=== PATIENT | male | born 1970 | race Caucasian/White ===

== ENCOUNTER → 2018-04-18 | Outpatient (CLI) | payer BC ==
--- NOTE | 2018-04-19 11:21 | RADIOLOGY REPORT (SQ) ---
EXAM DESCRIPTION: MRI LT LOWER JOINT WITHOUT COMPLETED DATE/TIME: 04/18/2018 6:52 pm REASON FOR STUDY: LEFT KNEE MENISCUS DERANGEMENT M23.332 OTH MENISCUS DERANGEMENTS, OTHER MEDIAL ME NISCUS, LE COMPARISON: None. TECHNIQUE: Leftknee images acquired and stored on PACS. Multiplanar images include fat sensitive se quences as T1, water sensitive sequences as FST2 or STIR, cartilage sensitive sequences as FSPD, and gradient echo sequences. LIMITATIONS: None. FINDINGS: JOINT AND BURSAE: No effusion. BONE CORTEX AND MARROW: No alteration of signal to suggest marrow replacement. No worrisome bone lesi ons. No occult fracture. ACL: Intact. No degeneration or ganglion cyst. PCL: Intact. MCL: Intact. No periligamentous edema or fluid. LCL: Intact. No periligamentous edema or fluid. MEDIAL MENISCUS: Vertical radial tear of central meniscus. LATERAL MENISCUS: No tears. No abnormal signal. MEDIAL COMPARTMENT: Cartilage preserved. No bone bruises or reactive marrow edema. No osteophytes. LATERAL COMPARTMENT: Cartilage preserved. No bone bruises or reactive marrow edema. No osteophytes. PATELLA: No chondromalacia. No subchondral cysts. Medial and lateral retinacula intact. EXTENSOR MECHANISM: Intact. Quadriceps and patella tendons normal. SOFT TISSUES: Adjacent muscles and subcutaneous tissues normal. Normal flow void in popliteal artery and vein. OTHER: No other significant finding. IMPRESSION: Vertical radial tear of the medial meniscus. TECHNICAL DOCUMENTATION: JOB ID: [id number] [employer]- All Rights Reserved Reading location - IP/workstation name: [email or web address]
== END ==
LOC: RAD 17:48
PROVIDERS: ATTEND Orthopaedic Surgery Sports Medicine
DX: M23.332 Other meniscus derangements, other medial meniscus, left knee (principal)

== ENCOUNTER 2020-08-23 08:58 | Emergency (ER) | payer BC ==
[2020-08-23 09:13] VITALS: BP 138/70
--- NOTE | 2020-08-23 09:22 | ER Document Report ---
ED General - General Chief Complaint: Shoulder Pain Stated Complaint: RIGHT SHOULDER PAIN Time Seen by Provider: 08/23/20 09:21 Primary Care Provider: MANUEL SHANKS MD [ACTIVE STAFF] - Follow up in 3-5 days TRAVEL OUTSIDE OF THE [place] IN LAST 30 DAYS: No - HPI Notes: 50-year-old male with past medical history of diet-controlled diabetes to the emergency department with complaints of right shoulder pain that began several days ago. It is progressively gotten worse. He states it hurts a lot when he tries to move his arm above his head. He denies any injuries or heavy lifting. He states that 2 weeks ago he built a patio but really did not have any pain at that time. He did not fall. He states that he does have a history of a dislocated shoulder in high school on the side. He is never had another dislocation after that. He is right-hand dominant. - Related Data Allergies/Adverse Reactions: No Known Allergies Allergy (Unverified 08/23/20 09:29) Past Medical History - General Information source: Patient, Relative - Social History Smoking Status: Current Every Day Smoker Frequency of alcohol use: None Drug Abuse: None Family History: DM, Hypertension Review of Systems - Review of Systems Constitutional: denies: Chills, Fever EENT: No symptoms reported Cardiovascular: denies: Chest pain, Palpitations, Heart racing, Orthopnea, Dyspnea, Syncope, Dizziness, Lightheaded Respiratory: denies: Cough, Short of breath Gastrointestinal: denies: Abdominal pain, Diarrhea, Nausea, Vomiting Musculoskeletal: Joint pain - right shoulder pain Skin: No symptoms reported Neurological/Psychological: No symptoms reported -: Yes All other systems reviewed and negative Physical Exam - Vital signs Vitals: Temp Pulse BP Pulse Ox 97.6 F 81 149/68 H 98 08/23/20 09:06 08/23/20 09:06 08/23/20 09:06 08/23/20 09:06 Interpretation: Normal - General General appearance: Appears well, Alert In distress: None - HEENT Head: Normocephalic, Atraumatic Eyes: Normal Pupils: PERRL Neck: Normal, Supple. No: Lymphadenopathy - Respiratory Respiratory status: No respiratory distress Chest status: Nontender. No: Pain on movement, Pain with cough, Accessory muscle use Breath sounds: Normal. No: Rales, Rhonchi, Wheezing Chest palpation: Normal - Cardiovascular Rhythm: Regular Heart sounds: Normal auscultation Murmur: No - Abdominal Inspection: Normal Distension: No distension Bowel sounds: Normal Tenderness: Nontender. No: Tender, McBurney's point, Flores's sign, Guarding, Rebound Organomegaly: No organomegaly - Back Back: Normal, Nontender - Extremities Notes: There is tenderness to palpation over the anterior joint of the right shoulder. Pain increases with forward flexion and with AB duction of the right shoulder joint. There does not appear to be any step-off or deformity. There is no tenderness to palpation along the clavicle. There is no tenderness to palpation along the chest wall. Nontender to palpation over the right elbow, right wrist, right hand. Cap refill is less than 2 seconds in all fingers. Handgrip is 5 out of 5 bilaterally. Radial pulses intact and equal. - Neurological Neuro grossly intact: Yes Cognition: Normal Orientation: AAOx4 Susanna Coma Scale Eye Opening: Spontaneous [place] Coma Scale Verbal: Oriented [place] Coma Scale Motor: Obeys Commands [place] Coma Scale Total: 15 Speech: Normal Cranial nerves: Normal Cerebellar coordination: Normal Motor strength normal: LUE, RUE, LLE, RLE Additional motor exam normals: Equal clinical neuropsychologist Sensory: Normal - Psychological Associated symptoms: Normal affect, Normal mood - Skin Skin Temperature: Warm Skin Moisture: Dry Skin Color: Normal Course - Re-evaluation Re-evalutation: 08/23/20 11:17 Noted x-ray results. Will place patient in a sling. We will have him follow-up with orthopedist. Will start on Medrol Dosepak, NSAIDs, muscle relaxant. Revie wed the results with patient and . They agree with the plan. Encouraged to return if any worsening symptoms. - Vital Signs Vital signs: Temp Pulse Resp BP Pulse Ox 98.5 F 81 16 138/70 H 99 08/23/20 09:11 08/23/20 09:11 08/23/20 09:11 08/23/20 09:11 08/23/20 09:11 - Diagnostic Test Radiology reviewed: Image reviewed, Reports reviewed Discharge - Discharge Clinical Impression: Right shoulder pain Qualifiers: Chronicity: acute Qualified Code(s): M25.511 - Pain in right shoulder Condition: Stable Disposition: HOME, SELF-CARE Instructions: Shoulder Injury ([facility]) Additional Instructions: Follow-up with orthopedist without fail. Take medicines as prescribed. Return if worsening symptoms. Use sling. Prescriptions: Cyclobenzaprine HCl [Flexeril 10 mg Tablet] 10 mg PO TID #9 tablet Indomethacin [Indocin 50 mg Capsule] 50 mg PO TID #15 capsule Methylprednisolone [Medrol Dosepack (4 mg/Tab) 21 Tab/Dosepak] 4 mg PO ASDIR PRN #21 tab.ds.pk PRN Reason: Forms: Return to Work Referrals: MANUEL SHANKS MD [ACTIVE STAFF] - Follow up in 3-5 days
[2020-08-23] MEDS ORDERED: METHYLPREDNISOLONE INJ 125 MG/2 ML SDV IM ONE (09:40)
[2020-08-23] MEDS ORDERED: HYDROCODONE/ACETAMINOPHEN 5-325 MG TABLET PO ONE (09:40)
--- NOTE | 2020-08-23 10:30 | RADIOLOGY REPORT (SQ) ---
EXAM DESCRIPTION: SHOULDER RIGHT 2 OR MORE VIEWS IMAGES COMPLETED DATE/TIME: 08/23/2020 9:50 am REASON FOR STUDY: right shoulder pain COMPARISON: None. NUMBER OF VIEWS: Three views. TECHNIQUE: Internal rotation, external rotation, and Y view images acquired of the right shoulder. LIMITATIONS: None. FINDINGS: MINERALIZATION: Normal. BONES: No acute fracture. No worrisome bone lesions. No significant osteophytes. GLENOHUMERAL JOINT: No significant findings. ACROMIOCLAVICULAR JOINT: No large osteophytes. SOFT TISSUES: No calcifications. VISUALIZED RIBS, SPINE, AND LUNG: No other significant finding. OTHER: No other significant finding. IMPRESSION: NEGATIVE STUDY OF THE RIGHT SHOULDER. NO EXPLANATION FOR PAIN. TECHNICAL DOCUMENTATION: JOB ID: [id number] 2010 [employer]- All Rights Reserved Reading location - IP/workstation name: [email or web address]
== END 2020-08-23 11:40 | disposition home or self-care (01) ==
LOC: ER 08:58
DX: M25.511 Pain in right shoulder (principal); F17.200 Nicotine dependence, unspecified, uncomplicated
CPT/HCPCS: 99284; 96372; 73030; J2930

== ENCOUNTER 2020-08-25 18:03 | Emergency (ER) | payer BC ==
[2020-08-25] MEDS ORDERED: KETOROLAC TROMETHAMINE INJ/PF 30 MG/1 ML SDV IV ONE (18:38)
--- NOTE | 2020-08-25 18:38 | ER Document Report ---
ED Medical Screen (RME) - General Stated Complaint: RIGHT SHOULDER PAIN Time Seen by Provider: 08/25/20 18:19 Mode of Arrival: Ambulatory Information source: Patient Notes: Patient is a 50-year-old male returns emergency room after being seen on the this month for same presentation. Patient was seen on which was 2 days ago for same presentation. Patient does state that he just woke up this past Saturday morning with right shoulder pain. He did mention that he had worked on building a patio couple weeks ago but had no problems. Has a history of right shoulder dislocation in high school but nothing since that point time. Patient states ever since leaving here it is gotten progressively worse it is more swollen than it was the other day patient states that he is currently taking Flexeril, indomethacin, and a steroid pack. He received Solu-Medrol shot here in the emergency room and given 1 oxycodone pill. Patient adamantly states that he does not want any more of that "oxycodone" stuff he said it made him feel terrible. But he is in excruciating pain right now unable to move his arm without any pain or discomfort. Again patient denies any known traumatic events. Patient does smoke and is right-hand dominant. Physical examination: Patient is a well-nourished well-developed 50-year-old male in no apparent distress on physical exam but does appear very uncomfortable. Cardiac: Patient has a heart rate on monitor of 90 bpm no murmurs are auscultated, blood pressure 139/79. Lungs: Auscultation patient's lungs show bilateral breath sounds increased clear throughout no rhonchi rales or wheeze noted. Patient is satting 95% on room air. Upper extremity: Examination patient's upper extremity shows he comes in wearing the sling appropriately. Evaluation of patient's shoulder shows that it is very swollen compared to the left side. Moderately marked tenderness is noted to palpation in the anterior portion of the shoulder and along the lateral aspect. There is noticeable temperature difference from the right shoulder to the left shoulder. Visualization of the shoulder in triage does not show any signs of major erythema or sign of infection. Patient does have good general farmer strength in the right hand on the right side. And good cap refill in nailbeds of the fingers of the right hand. Given patient has a mildly elevated temperature and that the shoulder is slightly warm I am going to go ahead and do a infectious type work-up. I am also ordering a CT for a septic joint presentation versus inflammatory arthritis. I have greeted and performed a rapid initial assessment of this patient. A comprehensive ED assessment and evaluation of the patient, analysis of test results and completion of the medical decision making process will be conducted by additional ED providers. Dictation of this chart was performed using voice recognition software; therefore, there may be some unintended grammatical errors. TRAVEL OUTSIDE OF THE [place] IN LAST 30 DAYS: No - Related Data Allergies/Adverse Reactions: No Known Allergies Allergy (Verified 08/25/20 18:26) Past Medical History Endocrine Medical History: Reports: Hx Diabetes Mellitus Type 2 - past 6 months has been controlled by diet Past Surgical History: Reports: Hx Orthopedic Surgery Physical Exam - Vital signs Vitals: Temp Pulse Resp BP Pulse Ox 99.3 F 90 18 139/74 H 95 08/25/20 18:10 08/25/20 18:10 08/25/20 18:10 08/25/20 18:10 08/25/20 18:10 Course - Vital Signs Vital signs: Temp Pulse Resp BP Pulse Ox 99.3 F 90 18 139/74 H 95 08/25/20 18:10 08/25/20 18:10 08/25/20 18:10 08/25/20 18:10 08/25/20 18:10
[2020-08-25] MEDS ORDERED: HYDROMORPHONE HCL INJ/PF 2 MG/ML AMPULE IV ONE ×2 (19:09→21:29)
[2020-08-25 19:22] LABS: ABSOLUTE EOSINOPHILS # (AUTO) 0.1 10^3/uL (0.0-0.6); ABSOLUTE LYMPHOCYTES (AUTO) 2.1 10^3/uL (0.5-4.7); ABSOLUTE MONOCYTES (AUTO) 1.8 10^3/uL (0.1-1.4); ABSOLUTE NEUT (AUTO) 10.7 10^3/uL (1.7-8.2); BASOPHILS % (AUTO) 0.2 % (0-2); EOSINOPHILS % (AUTO) 0.3 % (0-6); HEMATOCRIT 39.3 % (37.9-51.0); HEMOGLOBIN 13.6 g/dL (13.5-17.0); LYMPHOCYTES % (AUTO) 14.4 % (13-45); MEAN CORPUSCULAR HEMOGLOBIN 31.1 pg (27.0-33.4); MEAN CORPUSCULAR HGB CONC 34.4 g/dL (32.0-36.0); MEAN CORPUSCULAR VOLUME 90 fl (80-97); MONOCYTES % (AUTO) 12.3 % (3-13); PLATELET COUNT 230 10^3/uL (150-450); RED BLOOD COUNT 4.36 10^6/uL (4.35-5.55); RED CELL DISTRIBUTION WIDTH 13.5 % (11.5-14.0); SEGMENTED NEUTROPHILS % (AUTO) 72.8 % (42-78); TOTAL CELLS COUNTED % (AUTO) 100 %; WHITE BLOOD COUNT 14.7 10^3/uL (4.0-10.5)
[2020-08-25 19:40] LABS: ALBUMIN 3.5 g/dL (3.5-5.0); ALKALINE PHOSPHATASE 118 U/L (38-126); ANION GAP 10 (5-19); ASPARTATE AMINO TRANSFERASE 20 U/L (17-59); BILIRUBIN,DIRECT 0.2 mg/dL (0.0-0.4); BILIRUBIN,TOTAL 0.6 mg/dL (0.2-1.3); BLOOD UREA NITROGEN 25 mg/dL (7-20); CALCIUM 8.5 mg/dL (8.4-10.2); CARBON DIOXIDE 23 mmol/L (22-30); CHLORIDE 103 mmol/L (98-107); GLUCOSE 216 mg/dL (75-110); POTASSIUM 3.8 mmol/L (3.6-5.0); TOTAL PROTEIN 6.9 g/dL (6.3-8.2)
[2020-08-25 19:50] LABS: C-REACTIVE PROTEIN 231.5 mg/L (<10.0)
--- NOTE | 2020-08-25 19:58 | RADIOLOGY REPORT (SQ) ---
EXAM DESCRIPTION: CT RT UPPER EXTREMITY WITHOUT IMAGES COMPLETED DATE/TIME: 08/25/2020 6:10 pm REASON FOR STUDY: Septic joint/inflammatory arthritis COMPARISON: Right shoulder radiograph, 08/23/2020 TECHNIQUE: [facility] with reformatted oblique coronal and ob lique sagittal imaging windowed for bone and soft tissues. All CT scanners at this facility use dose modulation, iterative reconstruction, and/or weight based d osing when appropriate to reduce radiation dose to as low as reasonably achievable (ALARA). [facility]: Dose Right [facility]: CareDose [facility]: Dose Right [facility]: Teradose 4D [facility]: Smart TEXbase RADIATION DOSE: CT Rad equipment meets quality standard of care and radiation dose reduction techniq ues were employed. CTDIvol: 17.5 mGy. DLP: 370 mGy-cm. mGy. LIMITATIONS: None. FINDINGS: SOFT TISSUES: No significant soft tissue abnormality. Small shoulder joint effusion. BONY ARCHITECTURE: There is a chronic appearing cortical irregularity at the posterolateral humeral h ead, consistent with a Hill-Sachs deformity. No acute fracture or cortical disruption. No lytic or blastic bone lesion. GLENOHUMERAL JOINT: Normal glenohumeral joint alignment. No significant osteophytosis. ACROMION AND AC JOINT: Mild osteoarthritis. ROTATOR CUFF: Grossly intact. Poorly evaluated without intra-articular contrast. GLENOID, LABRUM AND BICEPS: Grossly intact. OTHER: No other significant finding. IMPRESSION: Small shoulder joint effusion. Chronic appearing Hill-Sachs deformity posterolateral hu meral head. Mild osteoarthritis of the acromioclavicular joint. TECHNICAL DOCUMENTATION: JOB ID: [id number] Quality ID # [id number]: Final reports with documentation of one or more dose reduction techniques (e.g., Au tomated exposure control, adjustment of the mA and/or kV according to patient size, use of iterative reconstruction technique) 2010 [employer]- All Rights Reserved Reading location - IP/workstation name: [email or web address]
--- NOTE | 2020-08-25 21:35 | ER Document Report ---
ED General - General Chief Complaint: Shoulder Pain Stated Complaint: RIGHT SHOULDER PAIN Time Seen by Provider: 08/25/20 18:19 Mode of Arrival: Ambulatory Notes: Patient presents to the ER for evaluation of right shoulder pain worse with movement that began Saturday. He states he developed a fever on Saturday. The justyna bran was seen in the emergency room this Saturday and given a steroid and pain medicine. He denies nausea or vomiting. He denies abdominal pain. He denies chest pain. He denies shortness of breath. He denies cough or congestion. Nursing notes reviewed and past medical, social, and family histories reviewed and validated. TRAVEL OUTSIDE OF THE [place] IN LAST 30 DAYS: No - Related Data Allergies/Adverse Reactions: No Known Allergies Allergy (Verified 08/25/20 18:26) Past Medical History - General Information source: Patient - Social History Smoking Status: Current Every Day Smoker Cigarette use (# per day): Yes - 10 Chew tobacco use (# tins/day): No Smoking Education Provided: Yes Frequency of alcohol use: Occasional Drug Abuse: None Lives with: Family Family History: DM, Hypertension Patient has suicidal ideation: No Patient has homicidal ideation: No - Past Medical History Cardiac Medical History: Reports: None Pulmonary Medical History: Reports: None EENT Medical History: Reports: None Neurological Medical History: Reports: None Endocrine Medical History: Reports: Hx Diabetes Mellitus Type 2 - past 6 months has been controlled by diet Renal/ Medical History: Reports: None Malignancy Medical History: Reports None GI Medical History: Reports: None Musculoskeletal Medical History: Reports None Skin Medical History: Reports None Psychiatric Medical History: Reports: None Traumatic Medical History: Reports: None Infectious Medical History: Reports: None Past Surgical History: Reports: Hx Orthopedic Surgery - bilateral knee surgery - Immunizations Immunizations up to date: Yes Hx Diphtheria, Pertussis, Tetanus Vaccination: Yes Review of Systems - Review of Systems Notes: Constitutional: Negative for fever. HENT: Negative for sore throat. Eyes: Negative for visual changes. Cardiovascular: Negative for chest pain. Respiratory: Negative for shortness of breath. Gastrointestinal: Negative for abdominal pain, vomiting or diarrhea. Genitourinary: Negative for dysuria. Musculoskeletal: Positive for right shoulder pain. Skin: Negative for rash. Neurological: Negative for headaches, weakness or numbness. 10 point ROS negative except as marked above and in HPI. Physical Exam - Vital signs Vitals: Temp Pulse Resp BP Pulse Ox 99.3 F 90 18 139/74 H 95 08/25/20 18:10 08/25/20 18:10 08/25/20 18:10 08/25/20 18:10 08/25/20 18:10 - Notes Notes: CONSTITUTIONAL: The patient is in moderate distress. He is obviously in pain. SKIN: Warm, dry, and intact without rash EYES: Extraocular movements are grossly intact, clear conjunctiva HENT: Normocephalic, atraumatic, moist mucus membranes NECK: No obvious swelling, normal range of motion PULMONARY: Normal chest rise and fall, no respiratory distress or stridor CARDIOVASCULAR: Regular rate, distal extremities are warm and well perfused NEUROLOGIC: Normal speech, moves all extremities MUSCULOSKELETAL: The patient has poor range of motion to the right shoulder due to pain. There is no erythema to the right shoulder. There is some warmth to the anterior aspect of the right shoulder. PSYCHIATRIC: Normal mood and affect Course - Vital Signs Vital signs: Temp Pulse Resp BP Pulse Ox 97.9 F 77 16 141/83 H 96 08/25/20 22:41 08/25/20 22:41 08/25/20 22:41 08/25/20 22:41 08/25/20 22:41 - Laboratory Result Diagrams: 08/25/20 18:55 08/25/20 18:55 Laboratory results interpreted by me: 08/25/20 08/25/20 18:55 18:55 WBC 14.7 H Absolute Neuts (auto) 10.7 H Absolute Monos (auto) 1.8 H Sodium 136.0 L BUN 25 H Glucose 216 H C-Reactive Protein 231.5 H - Diagnostic Test Radiology reviewed: Reports reviewed - Consults Ortho Consult Time consulted: 21:30 Reason for consultation: 08/25/20 21:20 This case was discussed with Dr. Bowers. Dr. Bowers suggest that this patient be transferred to a facility with the ability to provide an MRI and infectious diseases consult. I discussed this plan for transfer with the patient who agrees with the disposition. Transfer Consult Time consulted: 23:27 Reason for consultation: 08/25/20 22:00 This case was discussed with Dr. Feliz at [facility]. He has accepted the patient under his care as a transfer. Discharge - Discharge Clinical Impression: Effusion of right shoulder joint Fever Qualifiers: Fever type: unspecified Qualified Code(s): R50.9 - Fever, unspecified Leukocytosis Qualifiers: Leukocytosis type: unspecified Qualified Code(s): D72.829 - Elevated white blood cell count, unspecified Condition: Stable [facility]position: [facility]
[2020-08-26] MEDS ORDERED: HYDROMORPHONE HCL INJ/PF 2 MG/ML AMPULE IV ONE (00:11)
[2020-08-26 00:34] VITALS: BP 137/77
== END 2020-08-26 00:40 | disposition short-term general hospital (02) ==
LOC: ER 18:03
DX: M25.411 Effusion, right shoulder (principal); R50.9 Fever, unspecified; D72.829 Elevated white blood cell count, unspecified; M25.511 Pain in right shoulder; E11.9 Type 2 diabetes mellitus without complications; F17.210 Nicotine dependence, cigarettes, uncomplicated
CPT/HCPCS: 96376; 99285; 96374; 96375; 36415; 87040; 83605; 85025; 86140; 80053; 73200; J1885; J1170 ×2